=== PATIENT | male | born 1960 | race Caucasian/White ===

== ENCOUNTER 2017-08-22 08:47 | Emergency (ER) | END 2017-08-22 11:39 | disposition home or self-care (01) ==

== ENCOUNTER 2017-08-28 10:38 | Emergency (ER) | END 2017-08-28 15:03 | disposition home or self-care (01) ==

== ENCOUNTER 2018-07-22 12:54 | Emergency (ER) | END 2018-07-22 14:33 | disposition home or self-care (01) ==

== ENCOUNTER 2019-04-20 17:55 | Emergency (ER) | payer MEDICARE, OTHER ==
[~2019-04-20 17:55] MED LIST: ALPR1TAB2 PO; CIPR500T4 PO; DICY10CA40 PO; FOLI-49 PO; HYDR-3980 PO; PANT40TA3 PO
== END 2019-04-20 18:05 | disposition left against medical advice (07) ==
LOC: E/R 17:55
DX: Z53.21 Procedure and treatment not carried out due to patient leaving prior to being seen by health care provider (principal)